=== PATIENT | female | born 1955 | race Caucasian/White ===

== ENCOUNTER → 2020-12-31 | Day surgery (SDC) | payer OTHER ==
[2020-12-30 14:58] VITALS: BMI 35.0
[~2020-12-31] MED LIST: LIDOCAINE HCL 1%, 10 MG/ML (20ML VIAL) ONE
== END | disposition home or self-care (01) ==
LOC: JASU-SURG 04:47
PROVIDERS: ATTEND Surgery
DX: Z53.8 Procedure and treatment not carried out for other reasons (principal)